=== PATIENT | female | born 1980 | race Caucasian/White ===

== ENCOUNTER 2019-11-23 05:03 | Observation (INO) ==
--- NOTE | 2019-11-08 17:53 | PAT Medication Instructions ---
Medication Instructions Date of Service November 08, 2019 Home Medications AMPHETAMINE-DEXTROAMPHETAMINE 20MG (ADDERALL 20MG) 20 mg PO TID DULOXETINE HCL (CYMBALTA) 30 mg PO DAILY OXYCODONE/ACETAMINOPHEN 5MG/325MG 1 tab PO BID PRN DO NOT take the morning of surgery AMPHETAMINE-DEXTROAMPHETAMINE 20MG (ADDERALL 20MG) 20 mg PO TID Take morning of surgery With a small sip of water, OTHERWISE NOTHING TO EAT OR DRINK AFTER MIDNIGHT: DULOXETINE HCL (CYMBALTA) 30 mg PO DAILY OXYCODONE/ACETAMINOPHEN 5MG/325MG 1 tab PO BID PRN (if needed, may be taken up to four hours before surgery) Take evening before surgery AMPHETAMINE-DEXTROAMPHETAMINE 20MG (ADDERALL 20MG) 20 mg PO TID OXYCODONE/ACETAMINOPHEN 5MG/325MG 1 tab PO BID PRN (if needed) Other Notes If you have any questions please call us at [phone] or [phone] or [phone] or [phone]
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
[2019-11-23] MEDS ORDERED: CEFAZOLIN 1000MG 1,000 MG/7.5 ML SYR IV SCH (06:00)
[2019-11-23] MEDS ORDERED: ACETAMINOPHEN 500 MG TAB PO SCH (06:00)
[2019-11-23] MEDS ORDERED: CeleBREX 200 MG CAP PO SCH (06:00)
[2019-11-23] MEDS ORDERED: GABAPENTIN 900 MG DOSE PO SCH (06:00)
[2019-11-23] MEDS ORDERED: LR 500ML BOLUS, THEN 15ML/HR IV SCH (06:00)
[2019-11-23] MEDS ORDERED: LIDOCAINE HCL 2% 2 ML VIAL/AMP(20MG/ML) INFIL ONE (06:47)
[2019-11-23] MEDS ORDERED: DEXAMETHASONE SOD INJ 4 MG/ML VIAL ONE (06:47)
[2019-11-23] MEDS ORDERED: PROPOFOL IV EMULSION 10 MG/ML 20 ML VIAL IV ONE (06:47)
[2019-11-23] MEDS ORDERED: ONDANSETRON INJ 2 MG/ML 2 ML VIAL ONE (06:47)
[2019-11-23] MEDS ORDERED: ROCURONIUM BROMIDE 10 MG/ML 5 ML VIAL IV ONE (06:47)
[2019-11-23] MEDS ORDERED: MIDAZOLAM HCL 1 MG/ML 2ML VIAL ONE (06:47)
[2019-11-23] MEDS ORDERED: fentaNYL citrate 100 MCG/2 ML VIAL ONE ×4 (06:47→10:43)
[2019-11-23 06:48] LABS: Pregnancy Test, Serum Negative (Negative)
[2019-11-23] MEDS ORDERED: ATROPINE SULFATE 0.1 MG/ML 10ML SYR IV PRN (07:18)
[2019-11-23] MEDS ORDERED: ONDANSETRON INJ 2 MG/ML 2 ML VIAL IV PRN ×2 (07:18→12:34)
[2019-11-23] MEDS ORDERED: KETOROLAC 30 MG/ML VIAL IV PRN (07:18)
[2019-11-23] MEDS ORDERED: PROMETHAZINE HCL 6.25 MG in SODIUM CHLORIDE 0.9% 50 ML IV PRN (07:18)
[2019-11-23] MEDS ORDERED: BUPIVACAINE/EPINEPHRINE 0.25% 1:200,000 30 ML VIAL ONE ×2 (07:29→09:18)
[2019-11-23] MEDS ORDERED: BACITRACIN INJ 50,000 UNIT VIAL ONE (07:29)
--- NOTE | 2019-11-23 07:36 | History & Physical Bridge Note ---
Date of Service November 23, 2019 History & Physical Bridge Note I have examined the patient, reviewed the History & Physical and in the interval since the performance of the History & Physical I have noted the following changes of clinical significance: no changes noted
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
[2019-11-23] MEDS ORDERED: FLOSEAL HEMOSTATIC MATRIX 10ML TOP ONE (09:40)
--- NOTE | 2019-11-23 10:30 | Fluoroscopy Report ---
FL spine 1V any level HISTORY: Bilateral stimulator replacement. FLUOROSCOPY TIME: 15 seconds. FINDINGS: Intraoperative fluoroscopy was provided for the lumbar spine. 1 fluoroscopic spot images we re obtained. IMPRESSION: Fluoroscopy provided for a bio stimulator removal and replacement. ACT 112: Negative or not required by law. The above report was generated using voice recognition software. It may contain grammatical, syntax or spelling errors. Electronically signed by: Jace Godoy M.D. 11/23/2019 10:29 AM
--- NOTE | 2019-11-23 10:49 | Operative Report ---
Post Operative Report Pre & Post Diagnosis Operation Date: 11/23/19 07:45 Pre-Op Diagnosis: Lumbar Post-Laminectomy Syndrome Post-Op Diagnosis: Lumbar Post-Laminectomy Syndrome I identified the patient and participated in the time-out.: Yes Procedure Operation Date: 11/23/19 07:45 Actual Procedures #1 removal of dorsal column stimulator battery and leads. #2 thoracic laminotomies T9, T10 and T11. #3 placement of a 16-lead dorsal column stimulator paddle and battery. Surgeon Tom Navarro, DO Counseling Department Chair None Estimated Blood Loss 10 Findings Consistent with Post-Op Diagnosis Specimens None Indications This is a 39-year-old female that presents with the above-mentioned diagnosis and failure of her previous stem placement. Subsequently she is here for revision. Description of Procedure Patient was met with identified informed consent obtained. Patient was then taken to the operative suite underwent an patient placed in a prone position the Angel table atop the Jamshid frame. All bony prominences were well-padded eyes inspected to ensure no external pressure placed upon the. This point the thoracolumbar spine was prepped and draped in normal sterile fashion. I then opened the battery site on the right upper buttock. The battery was detached from the leads and removed. Then a created a second incision over the midline where the leads were sutured to the fascia. The sutures were in leads were identified tiedown's were released and the 2 spinal leads were removed without difficulty. After this was complete sharp dissection with the assistance of Bovie cautery performed down to and exposing the interlaminar space at T10-T11. A midline laminotomy was then created of T11 and I attempted to pass a dural child guidance counselor cephalad. It demonstrated significant resistance secondary to the previous leads in place. And marked scarring across the dorsal aspect of the dura and along the epidural ligaments. I then had to extend the incision and expose the T10 and T9 lamina. I had to perform laminotomies of both these levels T9-T10 and T11 to release all the dorsal scar and ligaments and to safely pass the paddle. Once the paddle was placed and verified with fluoroscopy it was sewn into position with silk ties. I then created a second battery site ov er the left upper buttock per the patient's request. The leads were then passed to the battery site by way of a trocar attached the battery tested for efficacy. Once this was determined. The battery was placed within the pocket. All incisions were copiously irrigated and closed with subcutaneous Vicryl and 4 Monocryl for final skin closure. I did elect to place a 10 round DARIO drain at the site of the laminotomies. Steri-Strips and sterile dressings were placed. Patient waken taken to PACU stable condition. I attest to the content of the Intraoperative Record and any orders documented therein. Any exceptions are noted below.
[2019-11-23] MEDS: HYDROmorphone INJ 1 MG/ML SYRINGE IV PRN ×8 (10:59→11:35)
--- NOTE | 2019-11-23 11:51 | Anesthesiology Progress Note ---
Date of Service November 23, 2019 Anesthesia Post Procedure Vital Signs Vital Signs: Temp Pulse Pulse Resp BP Pulse Ox 11/23/19 11:45 60 12 132/77 100 11/23/19 11:35 65 18 129/72 100 11/23/19 11:25 59 L 12 120/78 100 11/23/19 11:15 62 12 127/74 100 11/23/19 11:05 75 12 142/79 H 100 11/23/19 10:56 36.8 C 94 H 19 125/98 99 11/23/19 05:30 36.8 C 60 18 126/73 99 Pain Intensity Lower Medial Back: Pain Intensity: 7 Transfer of Care Handoff Completed per policy Notes Mental Status: alert / awake / arousable Patient Amnestic to Procedure: Yes Nausea / Vomiting: adequately controlled Pain: adequately controlled Airway Patency, RR, SpO2: stable & adequate BP & HR: stable & adequate Hydration State: stable & adequate Anesthetic Complications: no major complications apparent
[2019-11-23] MEDS ORDERED: SOD PHOSPHATE/SOD BIPHOSPHATE ENEMA 132 ML BTL PR PRN (12:34)
[2019-11-23] MEDS ORDERED: HYDROmorphone INJ 0.5 MG/0.5 ML SYR IV PRN (12:34)
[2019-11-23] MEDS ORDERED: METOCLOPRAMIDE HCL INJ 5 MG/ML 2 ML VIAL IV PRN (12:34)
[2019-11-23] MEDS ORDERED: LORazepam 0.5 MG TAB PO PRN ×2 (12:34)
[2019-11-23] MEDS ORDERED: bisacodyL 10 MG SUPP PR PRN (12:34)
[2019-11-23] MEDS ORDERED: NALOXONE HCL 0.4 MG/1 ML VIAL/CARP IV PRN (12:34)
[2019-11-23] MEDS ORDERED: ZOLPIDEM TARTRATE 5 MG TAB PO PRN (12:34)
[2019-11-23] MEDS ORDERED: ACETAMINOPHEN 500 MG TAB PO PRN (12:34)
[2019-11-23] MEDS ORDERED: FAMOTIDINE 20 MG TAB PO PRN (12:34)
[2019-11-23] MEDS ORDERED: ONDANSETRON 4 MG OD TAB PO PRN (12:34)
[2019-11-23] MEDS ORDERED: ACETAMINOPHEN 1,000 MG/100 ML VIAL IV PRN (12:34)
[2019-11-23] MEDS ORDERED: HYDROmorphone INJ 1 MG/ML SYRINGE IV PRN (12:34)
[2019-11-23] MEDS ORDERED: PROMETHAZINE HCL 12.5 MG in SODIUM CHLORIDE 0.9% 50 ML IV PRN (12:34)
[2019-11-23] MEDS ORDERED: DO NOT ADMINISTER PNEUMOCOCCAL VACCINE PRN (12:34)
[2019-11-23] MEDS ORDERED: TRAMADOL HCL 50 MG TABLET PO PRN (12:34)
[2019-11-23] MEDS ORDERED: DO NOT ADMINISTER FLU VACCINE PRN (12:34)
[2019-11-23] MEDS ORDERED: ALUMINUM/MAGNESIUM SUSP 30 ML UDC PO PRN (12:34)
[2019-11-23] MEDS ORDERED: MAGNESIUM HYDROXIDE SUSP 30 ML UDC PO PRN (12:34)
[2019-11-23] MEDS ORDERED: LORazepam 0.5 MG/1 ML VIAL IV PRN (12:34)
[2019-11-23] MEDS: KETOROLAC TROMETHAMINE 15 MG/ML VIAL IV SCH ×2 (13:24→19:48)
[2019-11-23] MEDS: AMPHETAMINE ASP/SULF/DEXTRAMPH 20 MG TAB PO SCH ×2 (13:54→21:15)
[2019-11-23] MEDS: OXYCODONE HCL IR 5 MG TAB (IMMEDIATE RELEASE) PO PRN ×3 (14:22→23:55)
[2019-11-23] MEDS: CEFAZOLIN 1000MG 1,000 MG/7.5 ML SYR IV SCH ×2 (16:36→23:54)
[2019-11-23] MEDS: LACTATED RINGER'S 1,000 ML IV SCH ×2 (18:05→23:35)
[2019-11-23] MEDS ORDERED: DOCUSATE SODIUM/SENNA 50/8.6MG TAB PO SCH (21:00)
[2019-11-24] MEDS: KETOROLAC TROMETHAMINE 15 MG/ML VIAL IV SCH ×2 (01:35→07:32)
[2019-11-24] MEDS: OXYCODONE HCL IR 5 MG TAB (IMMEDIATE RELEASE) PO PRN ×2 (04:07→08:16)
[2019-11-24] MEDS ORDERED: POLYETHYLENE (MIRALAX) 17 GM PACK PO SCH (06:00)
--- NOTE | 2019-11-24 07:58 | Anesthesiology Progress Note ---
Date of Service November 24, 2019 Anesthesia Post Procedure Vital Signs Vital Signs: Temp Pulse Pulse Resp BP Pulse Ox 11/24/19 07:13 36.4 C L 75 18 127/79 98 11/24/19 03:08 36.8 C 77 18 138/68 100 11/23/19 23:33 36.8 C 79 16 137/80 99 11/23/19 19:28 36.5 C 66 17 117/69 99 11/23/19 15:31 36.6 C 65 16 109/66 98 11/23/19 14:15 36.6 C 59 L 16 117/71 95 11/23/19 13:15 36.4 C L 70 16 99/59 L 100 11/23/19 12:47 36.6 C 64 16 112/67 99 11/23/19 12:15 36.4 C L 58 L 16 127/78 100 11/23/19 12:00 59 L 17 117/70 100 11/23/19 11:55 37.0 C 55 L 12 122/73 100 11/23/19 11:45 60 12 132/77 100 11/23/19 11:35 65 18 129/72 100 11/23/19 11:25 59 L 12 120/78 100 11/23/19 11:15 62 12 127/74 100 11/23/19 11:05 75 12 142/79 H 100 11/23/19 10:56 36.8 C 94 H 19 125/98 99 Pain Intensity Lower Medial Back: Pain Intensity: 9 Notes Mental Status: alert / awake / arousable and participated in evaluation Patient Amnestic to Procedure: Yes Nausea / Vomiting: adequately controlled Pain: improving with treatment (RN getting her more pain medication.) Airway Patency, RR, SpO2: stable & adequate BP & HR: stable & adequate Hydration State: stable & adequate Anesthetic Complications: no major complications apparent
[2019-11-24] MEDS ORDERED: GUANFACINE HCL 1 MG ERTAB PO SCH (09:00)
[2019-11-24] MEDS: AMPHETAMINE ASP/SULF/DEXTRAMPH 20 MG TAB PO SCH (09:07)
[2019-11-24] MEDS ORDERED: Nursing to Pharmacy Communication SCH (10:15)
--- NOTE | 2019-11-24 10:17 | Discharge Summary ---
Date of Service November 24, 2019 Admission HPI Per Admitting Provider This is a 39-year-old female presents with worsening chronic back and leg pain. She has a 3-year-old dorsal column stimulator and is here for revision. Principal Diagnosis Postlaminectomy syndrome Discharge Data Allergies Allergy/AdvReac Type Severity Reaction Status Date / Time hydrocodone AdvReac Intermediate "CRAWLING Verified 11/23/19 05:46 SKIN" pregabalin AdvReac Intermediate swelling Verified 11/23/19 05:46 hands and feet gabapentin AdvReac Unknown "weirded Verified 11/23/19 05:46 out" Procedures Performed Operation Date: 11/23/19 07:45 Actual Procedures p Spinal Cord Stimulator Removal, Spinal Cord Stimulator Replacement (New Unit)(Not Applicable) - Tom Navarro DO Ordered Studies 11/23/19 FL fluoroscopy <1hr Routine [place] spine 1V any level Routine Hospital Course (1) Chronic back pain greater than 3 months duration: Patient underwent dorsal column stimulator placement tolerated this well was taken to the orthopedic for postoperative. Postop day 1 DARIO drainage decreased appropriately. Leg symptoms markedly improved. Neurologically intact. Subsequently discharged home. Discharge orders instructions from the chart for further review. Total Time Total Time Spent Total Time Spent (In Minutes): 20 minutes Discharge Plan Discharge Items Patient Disposition: Home - Self-Care Reason For Visit: Lumbar Post-Laminectomy Syndrome Discharge Diagnosis: Postlaminectomy syndrome Activity: As commented below Non-emergency contact: Primary Care Provider Call non-emergency contact if: you have any medication questions Follow-up/Referrals: Aliyah Lucia CRNP [Primary Care Provider] - Diet: Regular Addtl Attending Provider Instructions: ACTIVITY RECOMMENDATIONS: SELF CARE INSTRUCTIONS AFTER A LAMINECTOMY 1. No prolonged sitting (less than 30 minutes for the first 3 weeks after surgery). 2. No bending, lifting more than 5 pounds, or twisting (roll like a log when turning in bed). 3. You may shower 3 days after surgery if no drainage from wound. Thoroughly dry wound. Do not soak in the tub. 4. Please walk as much as you can for exercise. Gradually increase the distance that you walk as your endurance increases. 5. You may drive in 7-10 days if you are comfortable and no longer requiring pain medications. SPECIAL CARE INSTRUCTIONS: VERY IMPORTANT TO READ AND REVIEW A. Your surgical incision has been closed with a cosmetic suture under the skin that will dissolve in about 6 weeks. In 14 days, you can use a pair of clean scissors and cut the suture that is left outside of the skin at the ends of your incision. B. Complications are uncommon, but please contact us if you have any signs or symptoms of: 1. wound infection (fever higher than 102.5 degrees F, redness, separation of wound, drainage, or increasing pain from the incision) 2. blood clots in legs (pain, swelling, redness and warmth in legs) 3. urinary tract infection (fever higher than 102.5 degrees, burning upon urination or increased frequency of urination) 4. nerve problems (inability to walk on your toes or heels, numbness, loss of bowel or bladder control) 5. any other symptoms that concern you. C. Please call the office at if you have any concerns or questions about your operation or recovery. MANAGING PAIN AFTER SPINAL SURGERY 1. Narcotic medication is intended for short-term use and will be provided for surgical pain. Surgical pain usually lasts for a period of 4-6 weeks. Narcotic medication includes Percocet, Vicodin, Darvocet, Tylenol #3 or Lortab. 2. Longer-term pain is more appropriately treated with non-narcotic medication such as Tylenol ES. 3. Muscle spasm is not appropriately treated with narcotics. Muscle relaxers such as Soma, Flexeril or Skelaxin can be used along with Tylenol ES. 4. Remember that we all live with some "aches and pains". This is not unusual or uncommon after an injury or as we get older. 5. We will provide appropriate medication within the normal guidelines of their prescribed use. We will also be very cautious and aware of potential abuse and extended duration of patients' medication needs. 6. Please allow 2-3 days to process refills. Prescriptions will not be mailed but must be picked up at the office. FOLLOW UP VISIT: Keep your scheduled follow-up appointment. Any questions, please call the office at . Pending Studies at Discharge: No Stand-Alone Forms: [facility] [employer] [facility], Smoking Cessation Medications and DC Order Prescriptions: New oxycodone 5 mg tablet 5 mg PO Q6H PRN (Reason: pain, severe) Qty: 20 RF: 0 Continued lorazepam 0.5 mg Tablet 0.5 mg PO BID PRN (Reason: Anxiety) RF: 0 dextroamphetamine-amphetamine 20 mg Tablet 20 mg PO TID RF: 0 hydroxyzine HCl 25 mg Tablet 25 mg PO BID PRN (Reason: Anxiety) RF: 0 guanfacine 4 mg Tablet Extended Release 24 Hr 4 mg PO QAM RF: 0 polyethylene glycol 3350 8.5 gram Powder In Packet 8.5 g PO DAILY PRN (Reason: Constipation) RF: 0 oxycodone-acetaminophen [Percocet] 5-325 mg Tablet 1 tab PO DAILY PRN (Reason: Pain) RF: 0 zolpidem [Ambien] 5 mg Tablet 5 mg PO HS PRN (Reason: Sleep) RF: 0 Discharge Orders: Discharge Order (Routine); Ordered 11/24/19 Ordered By: Tom Navarro Admission Data Admit Date/Time: 11/23/19 11:23 Attending Provider: Tom Navarro Admit Provider: Tom Navarro Primary Care Provider: Aliyah Lucia Other Interventions: Discharge Summary Assessment (RN) Last Done: 11/24/19 10:07
[2019-11-24] MEDS ORDERED: AMPHETAMINE ASP/SULF/DEXTRAMPH 20 MG TAB PO SCH (10:30)
== END 2019-11-24 11:00 | disposition home or self-care (01) ==
LOC: ASU 05:03 → INTOOBSV 11:23 → 3E 11:23